=== PATIENT | female | born 1995 | race Hispanic/Latino ===

== ENCOUNTER 2022-11-10 19:26 | Emergency (ER) | payer OTHER ==
[2022-11-10] MEDS ORDERED: NA CHLORIDE 0.9% 1,000 ML ONE (20:37)
[2022-11-10] MEDS ORDERED: ONDANSETRON 4 MG/2 ML VIAL ONE (20:37)
[2022-11-10] MEDS ORDERED: PANTOPRAZOLE 40 MG INJ ONE (20:37)
[2022-11-10 20:56] LABS: Specific Gravity < 1.005 (1.005-1.030); Urine Bilirubin NEGATIVE (Negative); Urine Blood Negative (Negative); Urine Clarity Clear (Clear); Urine Color Colorless (Yellow); Urine Glucose NEGATIVE (Negative); Urine Protein NEGATIVE (Negative); Urine Urobilinogen Normal (Normal)
[2022-11-10 20:57] LABS: Lymphocytes % 37.6 % (15.3-44.8); MCV 95.1 fL (80-100); Specific Gravity 1.005 (1.005-1.030)
[2022-11-10 21:10] LABS: Albumin 4.1 g/dL (3.4-5.0); Bilirubin Total 0.2 mg/dL (0.2-1.0); Potassium 3.7 mEq/L (3.5-5.1); Protein, Total 7.8 g/dL (6.4-8.2)
--- NOTE | 2022-11-10 21:44 | RAD REPORT ---
EXAM DESCRIPTION: CTAbdomen Pelvis W Contrast - 11/10/2022 9:35 pm CLINICAL HISTORY: Abdominal pain. ABD PAIN COMPARISON: No comparisons TECHNIQUE: Biphasic CT imaging of the abdomen and pelvis was performed with 100 ml non-ionic IV cont rast. All CT scans are performed using dose optimization technique as appropriate and may include automated exposure control or mA/KV adjustment according to patient size. FINDINGS: The lung bases are clear. The liver, spleen, pancreas, adrenal glands and kidneys are within normal limits. No bowel obstruction, free air, free fluid or abscess. There is significant fecal retention throughou t the colon. Appendectomy. No evidence of significant lymphadenopathy. No suspicious bony findings. IMPRESSION: Prominent constipation.
[2022-11-10] MEDS ORDERED: MORPHINE 2 MG/ML SYR ONE (22:18)
[2022-11-10] MEDS ORDERED: LIDOCAINE VISCOUS 2% SOLN 15 ML UDC ONE (22:18)
[2022-11-10] MEDS ORDERED: MAGNESIUM HYDROXIDE 8% 30 ML ONE (22:18)
[2022-11-10] MEDS ORDERED: MAGNES/ALUMIN/SIMET 30ML UCUP ONE (22:20)
--- NOTE | 2022-11-10 22:33 | ER ---
Nurse's Notes [facility] Name: Thania Herrera Age: 27 yrs Sex: Female : 1995 Arrival Date: 11/10/2022 Time: 19:26 Bed 4 Private MD: Diagnosis: Nausea with vomiting, unspecified;Epigastric pain Presentation: 11/10 19:40 Chief complaint: Patient states: Vomited about an hour ago, noticed some blood after nj1 vomiting undigested food. Nauseous all day. Denies diarrhea/fever. Coronavirus screen: Vaccine status: Patient reports being unvaccinated. Ebola Screen: Patient denies travel to an Ebola-affected area in the 21 days before illness onset. Initial Sepsis Screen: Does the patient meet any 2 criteria? No. Patient's initial sepsis screen is negative. Does the patient have a suspected source of infection? No. Patient's initial sepsis screen is negative. Risk Assessment: Do you want to hurt yourself or someone else? Patient reports no desire to harm self or others. Onset of symptoms was November 10, 2022 at 18:30. 19:40 Method Of Arrival: Ambulatory nj1 19:40 Acuity: ARAI 3 nj1 Historical: - Allergies: 19:43 Benadryl; nj1 19:43 Compazine; nj1 19:43 Buspirone; nj1 - PMHx: 19:43 Depressive disorder; SVT; nj1 - PSHx: 19:43 Cholecystectomy; Appendectomy; nj1 - Immunization history:: Client reports having NOT received the Covid vaccine. - Social history:: Smoking status: Reported history of juuling and/or vaping. Screenin:44 [facility] ED Fall Risk Assessment (Adult) History of falling in the last 3 months, ll3 including since admission No falls in past 3 months (0 pts) Confusion or Disorientation No (0 pts) Intoxicated or Sedated No (0 pts) Impaired Gait No (0 pts) Mobility Assist Device Used No (0 pt) Altered Elimination No (0 pt) Score/Fall Risk Level 0 - 2 = Low Risk Oriented to surroundings, Maintained a safe environment, Educated pt \T\ family on fall prevention, incl call for assistance when getting out of bed. Abuse screen: Denies threats or abuse. Denies injuries from another. Nutritional screening: No deficits noted. Tuberculosis screening: No symptoms or risk factors identified. Assessment: 20:39 General: Appears uncomfortable, Behavior is calm, cooperative. Pain: Complains of pain kl in abdomen Pain currently is 8 out of 10 on a pain scale. Neuro: No deficits noted. Neuro: No deficits noted. Cardiovascular: No deficits noted. Respiratory: No deficits noted. Airway is patent Trachea midline Respiratory effort is even, unlabored. GI: Abdomen is flat, Abd is soft Abdomen is tender to palpation X 4 quads. Reports nausea, vomiting, since 1830. : No deficits noted. No signs and/or symptoms were reported regarding the genitourinary system. 21:59 Reassessment: Patient and/or family updated on plan of care and expected duration. Pain ll3 level reassessed. Patient is alert, oriented x 3, equal unlabored respirations, skin warm/dry/pink. C/o abdominal pain 4/10, ERP notifed. 22:19 Reassessment: Patient appears in no apparent distress at this time. Patient and/or kl family updated on plan of care and expected duration. Pain level reassessed. Patient is alert, oriented x 3, equal unlabored respirations, skin warm/dry/pink. Patient states feeling better. Vital Signs: 19:40 BP 133 / 89; Pulse 86; Resp 17; Temp 98.8; Pulse Ox 100% ; Weight 65.77 kg; Height 5 nj1 ft. 8 in. ; Pain 4/10; 20:40 BP 115 / 80; kl 21:58 BP 127 / 75; Pulse 81; Resp 16; Pulse Ox 100% on R/A; ll3 22:45 BP 117 / 78; Pulse 78; Resp 16; Pulse Ox 100% on R/A; ll3 19:40 Body Mass Index 22.05 (65.77 kg, 172.72 cm) nj1 19:40 Pain Scale: Adult [facility] ED Course: 19:27 Patient arrived in ED. ja2 19:37 Manny Canas PA is PHCP. cp 19:38 Andrew Diaz DO is Attending Physician. cp 19:43 Triage completed. nj1 19:45 Arm band placed on right wrist. nj1 20:38 Inserted saline lock: 20 gauge in left antecubital area, using aseptic technique. Blood kl collected. 20:48 CBC with Diff Sent. kl 20:48 CMP Sent. kl 20:48 Lipase Sent. kl 20:48 Test, Urine Sent. kl 20:48 Urinalysis w/ reflexes Sent. kl 21:36 CT Abd/Pelvis - IV Contrast Only In Process Unspecified. EDMS 22:44 Patient has correct armband on for positive identification. Bed in low position. Call ll3 light in reach. Side rails up X 1. Adult w/ patient. 22:44 No provider procedures requiring assistance completed. IV discontinued, intact, ll3 bleeding controlled, No redness/swelling at site. Pressure dressing applied. Administered Medications: 20:38 Drug: NS 0.9% IV 1000 ml Route: IV; Rate: 1 bolus; Site: left antecubital; ll3 22:44 Follow up: Response: No adverse reaction; IV Status: Completed infusion; IV Intake: ll3 1000ml 20:38 Drug: Ondansetron IVP 4 mg Route: IVP; Site: left antecubital; ll3 21:54 Follow up: Response: No adverse reaction ll3 20:38 Drug: Pantoprazole IVP 40 mg Route: IVP; Site: left antecubital; ll3 21:54 Follow up: Response: No adverse reaction ll3 22:19 Drug: GI Cocktail without - (Maalox PO Suspension 30 ml, Lidocaine Mucous kl Membrane Liquid 2 % 15 ml) Route: PO; 22:44 Follow up: Response: No adverse reaction; Marked relief of symptoms ll3 22:19 Drug: morphine IVP or IV 2 mg Route: IVP; Infused Over: 4 mins; Site: left antecubital; kl 22:43 Follow up: Response: No adverse reaction; Marked relief of symptoms ll3 Medication: 22:45 VIS not applicable for this client. ll3 Intake: 22:44 IV: 1000ml; Total: 1000ml. ll3 Outcome: 22:32 Discharge ordered by . cp 22:44 Discharged to home ambulatory, with significant other. ll3 22:44 Condition: stable 22:44 Discharge instructions given to patient, significant other, Instructed on discharge instructions, follow up and referral plans. medication usage, Demonstrated understanding of instructions, follow-up care, medications, Prescriptions given X 2. 22:45 Patient left the ED. ll3 Signatures: Dispatcher [employer] EDIA Rachel Basurto RN RN Manny Porter PA PA cp Alexander, Jessica ja2 Loubet, Lynsea, RN RN ll3 Evelia Bridges RN RN nj1
--- NOTE | 2022-11-10 22:33 | EDPHYS ---
Physician Documentation [facility] Name: Thania Herrera Age: 27 yrs Sex: Female : 1995 Arrival Date: 11/10/2022 Time: 19:26 Bed 4 Private MD: ED Physician Andrew iDaz HPI: 11/10 20:00 This 27 yrs old Female presents to ER via Ambulatory with complaints of cp Vomiting. 20:00 The patient presents to the emergency department with nausea, vomiting, that is cp intermittent. Onset: The symptoms/episode began/occurred today. 20:00 Possible causes: unknown. cp 20:00 Associated signs and symptoms: Pertinent positives: abdominal pain, nausea, noted red cp blood in vomitus, Pertinent negatives: constipation, diarrhea, fever, active vomiting. Severity of symptoms: in the emergency department the symptoms have improved mildly. Historical: - Allergies: 19:43 Benadryl; nj1 19:43 Compazine; nj1 19:43 Buspirone; nj1 - PMHx: 19:43 Depressive disorder; SVT; nj1 - PSHx: 19:43 Cholecystectomy; Appendectomy; nj1 - Immunization history:: Client reports having NOT received the Covid vaccine. - Social history:: Smoking status: Reported history of juuling and/or vaping. ROS: 20:05 Constitutional: Negative for body aches, chills, fever. cp 20:05 Eyes: Negative for injury, pain, redness, and discharge. cp 20:05 Cardiovascular: Negative for chest pain. 20:05 Abdomen/GI: Positive for abdominal pain, nausea and vomiting, hematemesis, of the epigastric area, Negative for diarrhea, constipation, black/tarry stool, rectal bleeding. Exam: 20:10 Constitutional: The patient appears in no acute distress, alert, awake, non-toxic, well cp developed, well nourished, uncomfortable. 20:10 Head/Face: Normocephalic, atraumatic. cp 20:10 Eyes: Periorbital structures: appear normal, Conjunctiva: normal, no exudate, no cp injection, Sclera: no appreciated abnormality, Lids and lashes: appear normal, bilaterally. 20:10 ENT: External ear(s): are unremarkable, Nose: is normal, Mouth: Lips: moist, Oral cp mucosa: pink and intact, moist, Posterior pharynx: is normal, airway is patent, no erythema, no exudate. 20:10 Chest/axilla: Inspection: normal, Palpation: is normal, no crepitus, no tenderness. 20:10 Cardiovascular: Rate: normal, Rhythm: regular. 20:10 Respiratory: the patient does not display signs of respiratory distress, Respirations: normal, no use of accessory muscles, no retractions, labored breathing, is not present, Breath sounds: are clear throughout, no decreased breath sounds, no stridor, no wheezing. 20:10 Abdomen/GI: Inspection: abdomen appears normal, Bowel sounds: active, all quadrants, Palpation: soft, in all quadrants, moderate abdominal tenderness, in the epigastric area, rebound tenderness, is not appreciated, involuntary guarding, is not appreciated. 20:10 Back: CVA tenderness, is absent. 20:10 Neuro: Orientation: to person, place \T\ time. Mentation: is normal, Cerebellar function: is grossly normal, Motor: moves all fours, strength is normal, Sensation: is normal. Vital Signs: 19:40 BP 133 / 89; Pulse 86; Resp 17; Temp 98.8; Pulse Ox 100% ; Weight 65.77 kg; Height 5 nj1 ft. 8 in. ; Pain 4/10; 20:40 BP 115 / 80; kl 21:58 BP 127 / 75; Pulse 81; Resp 16; Pulse Ox 100% on R/A; ll3 22:45 BP 117 / 78; Pulse 78; Resp 16; Pulse Ox 100% on R/A; ll3 19:40 Body Mass Index 22.05 (65.77 kg, 172.72 cm) nj1 19:40 Pain Scale: Adult nj1 MDM: 20:16 Patient medically screened. cp 20:30 Differential diagnosis: Nonspecific abd pain, gastritis, cholecystitis, pancreatitis, cp appendicitis, viral gastroenteritis, gastroenteritis. 22:31 Data reviewed: vital signs, nurses notes, lab test result(s), radiologic studies, CT cp scan. 22:31 Consideration of Admission/Observation Escalation of care including cp admission/observation considered. 22:31 I considered the following discharge prescriptions or medication management in the cp emergency department Medications were administered in the Emergency Department. See MAR. 22:31 Counseling: I had a detailed discussion with the patient and/or guardian regarding: the cp historical points, exam findings, and any diagnostic results supporting the discharge/admit diagnosis, lab results, radiology results, to return to the emergency department if symptoms worsen or persist or if there are any questions or concerns that arise at home. Response to treatment: the patient's symptoms have markedly improved after treatment, and as a result, I will discharge patient. Special discussion: Based on the patient's Hx, exam, and Dx evaluation, there is no indication for emergent surgery or inpatient Tx. It is understood by the patient/guardian that if the Sx's persist or worsen they need to return immediately for re-evaluation. 11/10 19:48 Order name: CBC with Diff; Complete Time: 21:11 cp 11/10 19:48 Order name: CMP; Complete Time: 21:11 cp 11/10 19:48 Order name: Lipase; Complete Time: 21:11 cp 11/10 19:48 Order name: Test, Urine; Complete Time: 21:11 cp 11/10 19:48 Order name: Urinalysis w/ reflexes; Complete Time: 21:11 cp 11/10 21:06 Order name: CREATININE WHOLE BLOOD; Complete Time: 21:11 EDMS 11/10 20:28 Order name: CT Abd/Pelvis - IV Contrast Only; Complete Time: 21:50 cp 11/10 21:50 Interpretation: Report reviewed. cp 11/10 19:48 Order name: IV Saline Lock; Complete Time: 20:48 cp 11/10 19:48 Order name: Labs collected and sent; Complete Time: 20:48 cp 11/10 21:51 Order name: PO challenge; Complete Time: 22:19 cp Administered Medications: 20:38 Drug: NS 0.9% IV 1000 ml Route: IV; Rate: 1 bolus; Site: left antecubital; ll3 22:44 Follow up: Response: No adverse reaction; IV Status: Completed infusion; IV Intake: ll3 1000ml 20:38 Drug: Ondansetron IVP 4 mg Route: IVP; Site: left antecubital; ll3 21:54 Follow up: Response: No adverse reaction ll3 20:38 Drug: Pantoprazole IVP 40 mg Route: IVP; Site: left antecubital; ll3 21:54 Follow up: Response: No adverse reaction ll3 22:19 Drug: GI Cocktail without - (Maalox PO Suspension 30 ml, Lidocaine Mucous kl Membrane Liquid 2 % 15 ml) Route: PO; 22:44 Follow up: Response: No adverse reaction; Marked relief of symptoms ll3 22:19 Drug: morphine IVP or IV 2 mg Route: IVP; Infused Over: 4 mins; Site: left antecubital; kl 22:43 Follow up: Response: No adverse reaction; Marked relief of symptoms ll3 Disposition: 11/11 07:48 Co-signature as Attending Physician, Andrew Diaz DO I was immediately available on-site ms3 in the Emergency Department for consultation in the care of the patient. . Disposition Summary: 11/10/22 22:32 Discharge Ordered Location: Home cp Problem: new cp Symptoms: have improved cp Condition: Stable cp Diagnosis - Nausea with vomiting, unspecified cp - Epigastric pain cp Followup: cp - With: Private Physician - When: 1 - 2 days - Reason: Recheck today's complaints Discharge Instructions: - Discharge Summary Sheet cp - Abdominal Pain, Adult cp - Kaleigh-Man Syndrome cp - Nausea and Vomiting, Adult cp Forms: - Medication Reconciliation Form cp - Thank You Letter cp - Antibiotic Education cp - Prescription Opioid Use cp Prescriptions: - Protonix 40 mg Oral Tablet - take 1 tablet by ORAL route once daily; 30 tablet; Refills: 0, Product cp Selection Permitted - Zofran 4 mg Oral Tablet - take 1 tablet by ORAL route every 12 hours As needed; 20 tablet; Refills: 0, cp Product Selection Permitted Signatures: Dispatcher [employer] EDRachel Butler RN RN Manny Porter PA PA cp Andrew Diaz DO DO ms3 Hugo Crockett RN RN ll3 Evelia Bridges, RN RN nj1
[2022-11-10 23:25] VITALS: TEMP 98.8; O2SAT 100
[2022-11-10 23:38] VITALS: BP 117/78
== END 2022-11-10 22:45 | disposition home or self-care (01) ==
LOC: ER 19:26
DX: R11.2 Nausea with vomiting, unspecified (principal); R10.13 Epigastric pain; Z88.1 Allergy status to other antibiotic agents; Z88.8 Allergy status to other drugs, medicaments and biological substances
CPT/HCPCS: 96361; 85025; 36415; 81025; 82565 ×2; 81003; 83690; 80053; 74177; 96375; 96374; 99284; Q9967; C9113; J2270; J2405; J7030